=== PATIENT | female | born 1975 | race Caucasian/White ===

== ENCOUNTER 2017-04-13 14:15 | Emergency (ER) | payer MEDICAID ==
[~2017-04-13] VITALS: Ht 162.6 cm; Wt 68.0 kg
[2017-04-13 15:01] VITALS: BP 131/67; PULSE 68; RESP 18; TEMP 98.5; O2SAT 100
[2017-04-13] MEDS ORDERED: REME15TA PO (15:01)
--- NOTE | 2017-04-13 15:15 | PD ---
HPI Chief Complaint: Syncope/Near-Syncope Time Seen by Provider: 15:11 Travel History International Travel<30 days: No Contact w/Intl Traveler<30days: No Traveled to known affect area: No History of Present Illness HPI 41 YO F presents to the ED via EMS for evaluation after syncopal episode. The patient states that she was outside most the day, waiting at the bus stop when she became dizzy and fell to the ground, striking her head. She endorses LOC. This was witnessed by bystanders. On presentation she complains of posterior headache and sunburn. She states she's been sunburned for 3 days. She endorses recent history of increased urinary urgency. She denies hematuria. She denies risk of , states that she had a partial hysterectomy years ago. She denies recent history fever, chills, headache, and chest pain, shortness of breath, abdominal pain, nausea, vomiting. She denies illicit drug use. PFSH Past Medical History Cardiovascular Problems: Yes (2002) ?: Not Social History Tobacco Use: Yes Allergies-Medications (Allergen,Severity, Reaction): Coded Allergies: Bactrim (Verified Allergy, Severe, Anaphylaxis, 04/13/17) Sulfa (Verified Allergy, Severe, Anaphylaxis, 04/13/17) Reported Meds & Prescriptions Reported Meds & Active Scripts Active Reported Remeron (Mirtazapine) 15 Mg Tab 15 Mg PO HS Review of Systems Except as stated in HPI: all other systems reviewed are Neg Physical Exam Narrative GENERAL: Well-nourished, well-developed white female no acute distress. SKIN: Focused skin assessment warm/dry. Diffuse, blistering sunburn on the extremities. No signs of infection. HEAD: Normocephalic. Tender cephalohematoma on the posterior aspect of the head. No other tenderness noted to the skull bones. EYES: No scleral icterus. No injection or drainage. PERRLA. EOMI. ENT: No hemotympanum. No malocclusion. NECK: Supple, trachea midline. No JVD or lymphadenopathy. No midline tenderness to palpation. Patient retains full, active, painless ROM of the neck. CARDIOVASCULAR: Regular rate and rhythm without murmurs, gallops, or rubs. 2+ DP and radial pulses bilaterally. RESPIRATORY: Breath sounds clear and equal bilaterally. No accessory muscle use. GASTROINTESTINAL: Abdomen soft, non-tender, nondistended. Active bowel sounds. MUSCULOSKELETAL: No cyanosis, or edema. NEUROLOGICAL: Awake and alert. Cranial nerves II through XII intact. Motor and sensory grossly within normal limits. 5/5 muscle strength in all muscle groups. Normal speech. BACK: Nontender without obvious deformity. No CVA tenderness. Data Data Last Documented VS Vital Signs Date Time Temp Pulse Resp B/P Pulse Ox O2 Delivery O2 Flow Rate FiO2 04/13/17 15:40 18 98 Room Air 04/13/17 15:23 97.8 67 131/67 Orders Electrocardiogram (04/13/17:24) Complete Blood Count With Diff (04/13/17:24) Comprehensive Metabolic Panel (04/13/17:24) Magnesium (Mg) (04/13/17:24) Ckmb (Isoenzyme) Profile (04/13/17:24) Troponin I (04/13/17:24) Act Partial Throm Time (Ptt) (04/13/17:24) Prothrombin Time / Inr (Pt) (04/13/17:24) Urinalysis - C+S If Indicated (04/13/17 15:24) Chest, Single Ap (04/13/17 15:24) Ct Brain W/O Iv Contrast(Rout) (04/13/17 15:24) Ecg Monitoring (04/13/17:24) Iv Access Insert/Monitor (04/13/17:24) Oximetry (04/13/17 15:24) Sodium Chloride 0.9% Flush (Ns Flush) (04/13/17 15:30) Sodium Chlor 0.9% 1000 Ml Inj (Ns 1000 M (04/13/17 15:24) Ondansetron Inj (Zofran Inj) (04/13/17 15:30) Sodium Chlor 0.9% 1000 Ml Inj (Ns 1000 M (04/13/17 15:45) Morphine Inj (Morphine Inj) (04/13/17 15:45) CKMB (04/13/17 15:28) CKMB% (04/13/17 15:28) Labs Laboratory Tests Test 04/13/17 04/13/17:28 16:10 White Blood Count 7.5 TH/MM3 Red Blood Count 3.80 MIL/MM3 Hemoglobin 11.6 GM/DL Hematocrit 33.6 % Mean Corpuscular Volume 88.3 FL Mean Corpuscular Hemoglobin 30.5 PG Mean Corpuscular Hemoglobin 34.5 % Concent Red Cell Distribution Width 14.0 % Platelet Count 226 TH/MM3 Mean Platelet Volume 9.4 FL Neutrophils (%) (Auto) 58.7 % Lymphocytes (%) (Auto) 28.6 % Monocytes (%) (Auto) 8.4 % Eosinophils (%) (Auto) 3.4 % Basophils (%) (Auto) 0.9 % Neutrophils # (Auto) 4.4 TH/MM3 Lymphocytes # (Auto) 2.1 TH/MM3 Monocytes # (Auto) 0.6 TH/MM3 Eosinophils # (Auto) 0.3 TH/MM3 Basophils # (Auto) 0.1 TH/MM3 CBC Comment DIFF FINAL Differential Comment Prothrombin Time 10.4 SEC Prothromb Time International 0.9 RATIO Ratio Activated Partial 26.8 SEC Thromboplast Time Sodium Level 139 MEQ/L Potassium Level 4.0 MEQ/L Chloride Level 107 MEQ/L Carbon Dioxide Level 24.5 MEQ/L Anion Gap 8 MEQ/L Blood Urea Nitrogen 13 MG/DL Creatinine 0.79 MG/DL Estimat Glomerular Filtration 79 ML/MIN Rate Random Glucose 85 MG/DL Calcium Level 8.3 MG/DL Magnesium Level 2.0 MG/DL Total Bilirubin 0.3 MG/DL Aspartate Amino Transf 21 U/L (AST/SGOT) Alanine Aminotransferase 27 U/L (ALT/SGPT) Alkaline Phosphatase 82 U/L Total Creatine Kinase 302 U/L Creatine Kinase MB 3.6 NG/ML Creatine Kinase MB % 1.2 % Troponin I LESS THAN 0.02 NG/ML Total Protein 6.8 GM/DL Albumin 3.5 GM/DL Urine Color YELLOW Urine Turbidity CLEAR Urine pH 6.0 Urine Specific [place] 1.019 Urine Protein NEG mg/dL Urine Glucose (UA) NEG mg/dL Urine Ketones NEG mg/dL Urine Occult Blood NEG Urine Nitrite NEG Urine Bilirubin NEG Urine Urobilinogen LESS THAN 2.0 MG/DL Urine Leukocyte Esterase NEG Urine RBC 9 /hpf Urine WBC 1 /hpf Urine Squamous Epithelial 1 /hpf Cells Urine Mucus FEW /lpf Microscopic Urinalysis Comment CULT NOT INDICATED MDM Medical Decision Making Medical Screen Exam Complete: Yes Emergency Medical Condition: Yes Interpretation(s) EKG rate 62, sinus rhythm. Normal intervals. Normal axis. No acute ST changes. Reviewed by Dr. Wagoner. Differential Diagnosis Heat syncope versus cardiogenic syncope versus dehydration versus substance intoxication versus metabolic derangement versus rhabdomyolysis versus ICH versus ACS versus other Narrative Course 41 YO F presents to the ED via EMS for evaluation after syncopal episode. The patient states that she was outside most the day, waiting at the bus stop when she became dizzy and fell to the ground, striking her head. She endorses LOC. This was witnessed by bystanders. On presentation she complains of posterior headache and sunburn. Vitals reviewed. Physical exam reveals a nontoxic- appearing white female in no acute distress. No focal neuro deficits. She has broadly sunburned on the extremities neck and face. Small areas of thin blisters without signs of infection. There is a tender cephalohematoma over the posterior aspect of the head. Exam is otherwise unremarkable. IV was established. The patient was administered 2 mg grams of morphine IV and 2 L of normal saline. EKG as above. Chest x-ray with no acute cardiopulmonary abnormality. Cardiac enzymes negative 1. No concerning abnormalities of the CBC, CMP, coags, UA. Head CT: No acute intracranial abnormality. On recheck the patient states that her headache symptoms are improved. I suspect this is heat syncope. Discussed the patient, workup and plan with Dr. Wagoner. We feel this patient is safe for discharge and follow-up with the [facility]. The patient instructed to rest, hydrate, return to normal, gentle activity as tolerated, follow-up as discussed. The patient is agreeable to this plan. She is stable and discharged home. Diagnosis Primary Impression: Heat syncope, initial encounter Additional Impressions: Cephalhematoma Post-traumatic headache, not intractable Qualified Code: G44.319 - Acute post-traumatic headache, not intractable Referrals: [facility] Patient Instructions: General Instructions, Syncope (ED) Additional Instructions: Rest, hydrate. Return to normal, gentle activity as tolerated. Follow-up with the [facility]. Return to the ED for any urgent or emergent medical condition. Disposition: 01 DISCHARGE HOME Condition: Stable Tena Cannon Apr 13, 2017 15:15
[2017-04-13 15:23] VITALS: BP 131/67; PULSE 67; RESP 18; TEMP 97.8; O2SAT 98
[2017-04-13] MEDS ORDERED: SODIUM CHLOR 0.9% 1000 ML INJ 1,000 ML IV ONE ×2 (15:24→15:45)
[2017-04-13] MEDS ORDERED: MORPHINE SULFATE 4 MG/ML INJ IM ONE (15:30)
[2017-04-13] MEDS ORDERED: ONDANSETRON HCL 4 MG/2 ML VIAL IV PUSH ONE (15:30)
[2017-04-13] MEDS ORDERED: SODIUM CHLORIDE 0.9% FLUSH 10 ML FLUSH IVF PRN (15:30)
[2017-04-13 15:40] VITALS: RESP 18; O2SAT 98
[2017-04-13] MEDS ORDERED: MORPHINE SULFATE 4 MG/ML INJ IV PUSH ONE (15:45)
[2017-04-13 15:52] LABS: AUTOMATED NEUTROPHIL # 4.4 TH/MM3 (1.8-7.7); BASOPHIL # 0.1 TH/MM3 (0-0.2); BASOPHIL % 0.9 % (0.0-2.0); EOSINOPHIL # 0.3 TH/MM3 (0-0.4); EOSINOPHIL % 3.4 % (0.0-4.0); HEMATOCRIT 33.6 % (35.0-46.0); HEMO FLAGS DIFF FINAL; LYMPH % 28.6 % (9.0-44.0); LYMPHOCYTE # 2.1 TH/MM3 (1.0-4.8); MEAN CELL VOLUME 88.3 FL (80.0-100.0); MEAN CORPUSCULAR HEMOGLOBIN 30.5 PG (27.0-34.0); MEAN CORPUSCULAR HGB CONC 34.5 % (32.0-36.0); MONO % 8.4 % (0.0-8.0); NEUT % 58.7 % (16.0-70.0); PLATELET COUNT 226 TH/MM3 (150-450); WHITE BLOOD COUNT 7.5 TH/MM3 (4.0-11.0)
[2017-04-13 16:08] LABS: APTT (PATIENT) 26.8 SEC (24.3-30.1); INTERNATIONAL NORMALIZED RATIO 0.9 RATIO; PROTHROMBIN TIME - PATIENT 10.4 SEC (9.8-11.6)
--- NOTE | 2017-04-13 16:19 | RADRPT ---
EXAM DATE/TIME: 04/13/2017 15:23 [facility] COMPARISON: No previous studies available for comparison. INDICATIONS : Short of breath. MEDICAL HISTORY : None. SURGICAL HISTORY : None. ENCOUNTER: Initial ACUITY: 1 day PAIN SCORE: 0/10 LOCATION: Bilateral chest FINDINGS: Portable AP view of the chest demonstrates a normal-sized cardiac silhouette. No effusion, consolidat ion, or pneumothorax is visualized. The bones and soft tissues demonstrate no acute abnormality. CONCLUSION: No acute cardiopulmonary abnormality is identified. Suleman Houston MD on April 13, 2017 at 16:17 Board Certified Radiologist. This report was verified electronically.
[2017-04-13 16:25] LABS: ALKALINE PHOSPHATASE 82 U/L (45-117); CREATINE KINASE 302 U/L (26-192); TOTAL BILIRUBIN ADULT 0.3 MG/DL (0.2-1.0)
[2017-04-13 16:30] LABS: ALT (GPT) 27 U/L (10-53); ANION GAP 8 MEQ/L (5-15); AST (GOT) 21 U/L (15-37); BICARBONATE 24.5 MEQ/L (21.0-32.0); BLOOD UREA NITROGEN 13 MG/DL (7-18); CHLORIDE 107 MEQ/L (98-107); GLOMERULAR FILTRATION RATE 79 ML/MIN (>89); SODIUM (NA) 139 MEQ/L (136-145)
--- NOTE | 2017-04-13 16:32 | RADRPT ---
EXAM DATE/TIME: 04/13/2017 16:14 [facility] COMPARISON: No previous studies available for comparison. INDICATIONS : Syncopal episode. RADIATION DOSE: 56.35 CTDIvol (mGy) MEDICAL HISTORY : Cardiovascular disease. SURGICAL HISTORY : None. ENCOUNTER: Initial ACUITY: 1 day PAIN SCALE: 0/10 LOCATION: cranial TECHNIQUE: Multiple contiguous axial images were obtained of the head. Using automated exposure control and adj ustment of the mA and/or kV according to patient size, radiation dose was kept as low as reasonably a chievable to obtain optimal diagnostic quality images. DICOM format image data is available electro nically for review and comparison. FINDINGS: CEREBRUM: The ventricles are normal. No evidence of midline shift, mass lesion, hemorrhage or acute infarction . No extra-axial fluid collections are seen. POSTERIOR FOSSA: The cerebellum and brainstem are intact. The 4th ventricle is midline. The cerebellopontine angle i s unremarkable. EXTRACRANIAL: There is mucoperiosteal thickening within the sphenoid sinus. SKULL: The calvaria is intact. No evidence of skull fracture. CONCLUSION: 1. No acute intracranial abnormality is identified. 2. Mild mucoperiosteal thickening within the sphenoid sinus. Suleman Houston MD on April 13, 2017 at 16:28 Board Certified Radiologist. This report was verified electronically.
[2017-04-13 16:38] LABS: CKMB 3.6 NG/ML (0.5-3.6)
[2017-04-13 16:53] LABS: BLOOD, URINE NEG (NEG); COMMENT (UR) CULT NOT INDICATED; CULTURE IF INDICATED CULT NOT INDICATED; GLUCOSE,URINE NEG (NEG); KETONE, URINE NEG (NEG); MUCUS URINE FEW /lpf (OCC); NITRITE,URINE NEG (NEG); SQUAMOUS EPITHELIAL CELL URINE 1 /hpf (0-5); URINE COLOR YELLOW (YELLW/STRAW)
--- NOTE | 2017-04-13 18:15 | EKG ---
Date Performed: 04/13/2017 Time Performed: 15:36:34 PTAGE: 41 years EKG: Sinus rhythm NORMAL ECG NO PREVIOUS TRACING DOCTOR: [place] Interpretating Date/Time 04/13/2017 18:15:03
== END 2017-04-13 18:14 | disposition home or self-care (01) ==
LOC: NEPC 14:15
DX: T67.1XXA Heat syncope, initial encounter (principal); S06.2X9A Diffuse traumatic brain injury with loss of consciousness of unspecified duration, initial encounter; G44.319 Acute post-traumatic headache, not intractable; L55.9 Sunburn, unspecified; R39.15 Urgency of urination; I25.2 Old myocardial infarction; Z72.0 Tobacco use; X32.XXXA Exposure to sunlight, initial encounter; W18.39XA Other fall on same level, initial encounter
CPT/HCPCS: 70450; 71010; 80053; 81001; 82550; 82552; 83735; 84484; 85025; 85610; 85730; 93005; 96374; 96375; 99285; J2270; J2405; J7030

== ENCOUNTER 2017-05-26 16:57 | Emergency (ER) | payer MEDICAID ==
[~2017-05-26] VITALS: Ht 172.7 cm; Wt 50.0 kg
[~2017-05-26 16:57] MED LIST: REME15TA PO
[2017-05-26 17:00] VITALS: BP 170/79; PULSE 72; RESP 18; TEMP 98.5; O2SAT 97
--- NOTE | 2017-05-26 17:05 | PD ---
Physical Exam Time Seen by Provider: 17:01 Narrative 41-year-old female with complaint of dog bite to left calf that occurred today. Not currently up-to-date on tetanus vaccination. Does not know vaccination status of the dog. Is also complaining of headache that she has had for days. Has history of headaches. Reports having a hole in the back of her scalp that has a thick white protectant and it is not draining. Reports subjective fever and vomiting. Patient seen in triage. Vital signs reviewed. Patient taken to medical bed. Data Data Last Documented VS Vital Signs Date Time Temp Pulse Resp B/P (MAP) Pulse Ox O2 Delivery O2 Flow Rate FiO2 05/26/17 17:00 98.5 72 18 170/79 (109) 97 MDM Supervised Visit with CHAI: Mena Mratin May 26, 2017 17:05
--- NOTE | 2017-05-26 17:24 | PD ---
HPI . dog bite and headache/facial pressure Chief Complaint: Headache Time Seen by Provider: 17:11 Travel History International Travel<30 days: No Contact w/Intl Traveler<30days: No Traveled to known affect area: No History of Present Illness HPI 41 yr old female here with multiple complaints. She says she was bitten by a chihuahua/wiener dog while in a store and the store press tender star signal was very rude therefore she contacted [facility], who has accepted her case and told her to come to the hospital. She has a small abrasion to her medial left leg near her calf. There is no evidence of broken skin. Her significant other wants her treated for rabies. She declines this. She initially did not want a tetanus shot, but then said she will take it. She also c/o a hole in her the back of her head. She reports a headache and facial pressure. She denies any neuro changes. No sudden onset. No recent trauma to the head. PFSH Past Medical History Anxiety: Yes Depression: Yes Cardiovascular Problems: Yes ([place] 2002) ?: Not Social History Alcohol Use: No Tobacco Use: Yes Substance Use: No Allergies-Medications (Allergen,Severity, Reaction): Coded Allergies: Sulfa (Sulfonamide Antibiotics) (Unverified Allergy, Severe, Anaphylaxis, 04/14/17) sulfamethoxazole (Unverified Allergy, Severe, Anaphylaxis, 04/14/17) trimethoprim (Unverified Allergy, Severe, Anaphylaxis, 04/14/17) Reported Meds & Prescriptions Reported Meds & Active Scripts Active Augmentin (Amoxicillin-Clavulanate) 875-125 Mg Tab 1 Tab PO BID Reported Remeron (Mirtazapine) 15 Mg Tab 15 Mg PO HS Review of Systems General / Constitutional: No: Fever Eyes: No: Visual changes HENT: No: Headaches Cardiovascular: No: Chest Pain or Discomfort Respiratory: No: Shortness of Breath Gastrointestinal: No: Abdominal Pain Genitourinary: No: Dysuria Musculoskeletal: No: Pain Skin: Positive Other (skin abrasion ), No Rash Neurologic: Positive: Headache, No: Weakness Psychiatric: No: Depression Endocrine: No: Polydipsia Hematologic/Lymphatic: No: Easy Bruising Physical Exam Narrative GENERAL: AAO x 3, no acute distress, Well-nourished, well-developed patient. SKIN: Warm and dry. No visible rashes or bruising. left medial leg near calf with small area of erythema without any evidence of broken skin. no dried blood no ecchymosis. There is a pinpoint excoriation to the occiput without evidence of infection HEAD: Normocephalic and atraumatic. EYES: No scleral icterus. No injection or drainage. EOM intact, PERRLA ENT: No nasal drainage noted. Mucous membranes pink. Airway patent. + frontal and maxillary sinus tenderness, TM clear effusion L>R NECK: Supple, trachea midline. No JVD. no lymphadenopathy CARDIOVASCULAR: Regular rate and rhythm without murmurs, gallops, or rubs. RESPIRATORY: Breath sounds equal bilaterally. No accessory muscle use. No rhonchi or rales. GASTROINTESTINAL: Abdomen soft, non-tender, nondistended. EXTREMITIES: No cyanosis or edema. BACK: No obvious deformity. 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 Data Data Last Documented VS Vital Signs Date Time Temp Pulse Resp B/P (MAP) Pulse Ox O2 Delivery O2 Flow Rate FiO2 05/26/17 17:47 65 18 121/73 (89) 99 05/26/17 17:29 Room Air 05/26/17 17:00 98.5 Orders Orders Tetanus/Diphtheria Tox Adult (Tetanus/Di (05/26/17 17:30) MDM Medical Decision Making Medical Screen Exam Complete: Yes Emergency Medical Condition: Yes Medical Record Reviewed: Yes Differential Diagnosis dog bite, sinusitis, less likely SAH, Narrative Course 41 yr old female here with multiple complaints. In regards to her dog bite, I have provided her with tetanus and augmentin, although I do not see any skin breaks. The augmentin will also cover sinus infection, which I think is causing her headache. I do not appreciate any neuro findings and do not recommend imaging. I do not suspect a tumor as cause or bleed. I think patient is suffering from sinus issues. SHe will need to f/u with PCP for further care. SHe can take Tylenol and Motrin PRN pain. Patient verbalized understanding of instructions, questions were answered, and thanked me for their care. I advised them if their condition worsens, please return to the nearest emergency room for further care. Diagnosis Primary Impression: Dog bite Qualified Codes: W54.0XXA - Bitten by dog, initial encounter Additional Impression: Acute sinusitis Qualified Codes: J01.90 - Acute sinusitis, unspecified Referrals: [facility] Patient Instructions: General Instructions Additional Instructions: Please return to emergency department if your symptoms return or worsen. Follow up with your primary care provider. Take medications as prescribed. Take tylenol or motrin as needed for pain. You received a tetanus shot today. You may experience tenderness at the injection site. This is normal. Med/Other Pt SpecificInfo: Prescription(s) given Scripts Amoxicillin-Clavulanate (Augmentin) 875-125 Mg Tab 1 TAB PO BID for Infection, #20 TAB 0 Refills Prov: Sandra Andersonmacy HEATH 05/26/17 Disposition: 01 DISCHARGE HOME Condition: Stable Edilia Jones May 26, 2017 17:24
[2017-05-26] MEDS ORDERED: AUGM875T3 PO (17:26)
[2017-05-26] MEDS ORDERED: TETANUS/DIPHTHERIA TOXOID ADULT 0.5 ML VIAL IM ONE (17:30)
[2017-05-26 17:47] VITALS: BP 121/73
== END 2017-05-26 17:57 | disposition home or self-care (01) ==
LOC: NEPD 16:57
DX: S80.872A Other superficial bite, left lower leg, initial encounter (principal); W54.0XXA Bitten by dog, initial encounter; J01.90 Acute sinusitis, unspecified; Z23 Encounter for immunization
CPT/HCPCS: 90471; 90714